=== PATIENT | male | born 1955 | race Caucasian/White ===

== ENCOUNTER 2022-07-18 06:59 | Day surgery (SDC) | payer OTHER, MEDICAID ==
[~2022-07-18] VITALS: Ht 165.1 cm; Wt 90.7 kg
[2022-07-18] MEDS ORDERED: MIDAZOLAM HCL 5 MG/5 ML VIAL ONE (08:11)
[2022-07-18] MEDS ORDERED: SIMETHICONE 40 MG/0.6 ML ML ONE (08:11)
[2022-07-18] MEDS ORDERED: MEPERIDINE 100 MG INJ. 100 MG/ML VIAL ONE (08:11)
[2022-07-18 13:37] VITALS: BP_SYST 108
== END 2022-07-18 10:55 | disposition home or self-care (01) ==
LOC: SDS 06:59 → SMU 07:00 → SDS 10:55
PROVIDERS: ATTEND Internal Medicine
DX: Z12.11 Encounter for screening for malignant neoplasm of colon (principal); D12.5 Benign neoplasm of sigmoid colon; K29.50 Unspecified chronic gastritis without bleeding; B96.81 Helicobacter pylori [H. pylori] as the cause of diseases classified elsewhere; K64.8 Other hemorrhoids; K70.30 Alcoholic cirrhosis of liver without ascites; Z86.010 Personal history of colon polyps; Z79.899 Other long term (current) drug therapy; Z20.822 Contact with and (suspected) exposure to COVID-19
CPT/HCPCS: 36415; 45385; 43239; 82962; 88305; 88312; 88313; 99152; 99153; U0003; G0378; J2250; J2175; 45384